=== PATIENT | male | born 1990 | race Caucasian/White ===

== ENCOUNTER 2017-08-15 20:24 | Emergency (ER) | payer OTHER | END 2017-08-15 22:25 | disposition home or self-care (01) | LOC: ER1 20:24 | DX: M54.5 Low back pain (principal); G89.29 Other chronic pain; I10 Essential (primary) hypertension; F17.210 Nicotine dependence, cigarettes, uncomplicated; Z88.0 Allergy status to penicillin | CPT/HCPCS: 72100; 72170; 96372; 99283; J1885 ==

== ENCOUNTER → 2021-01-06 | Outpatient (CLI) | payer BC, OTHER ==
[~2021-01-06] MED LIST: FLOMAX0.4 MG PO; MORPHINE SULFAT15 M1 PO; TORADOL 10 MG T10 MG PO; ZOFRAN ODT 4 MG4 MG PO
[2021-01-06 17:31] LABS: HEMOGLOBIN 17.1 gm/dl (14.0-17.5); RED BLOOD COUNT 5.08 M/UL (4.20-5.50); WHITE BLOOD COUNT 8.9 K/UL (4.5-11.0)
[2021-01-06 17:48] LABS: BUN/CREATININE RATIO 11 (0-10)
== END ==
LOC: LAB 17:03
PROVIDERS: Urology
DX: N20.0 Calculus of kidney (principal)
CPT/HCPCS: 80048; 83970; 85027; 87086